=== PATIENT | female | born 2000 | race African-American/Black ===

== ENCOUNTER 2022-08-16 18:41 | Emergency (ER) | payer BC, SELFPAY ==
[2022-08-16 18:43] VITALS: BP 137/118; PULSE 115; RESP 26; TEMP 37.2; O2SAT 97; BMI 20.1
[2022-08-16 20:41] VITALS: BMI 19.8
--- NOTE | 2022-08-16 20:58 | EX.ED.DYSGE1 ---
HPI History of Present Illness Chief Complaint: Allergic Reaction Informant: patient Narrative Narrative: Patient presents with allergic reaction. Patient has had anaphylaxis before. She is allergic to fennil, and penicillin. She states today she started to get swelling around her eyes some mild heavy breathing but her throat did not close. She got hives all over. She took Benadryl that she had. She has an EpiPen with her and it is up-to-date but she did not use it. She states it is a lot better now and her symptoms are essentially gone. The hives are gone. She has a little swelling of the eyes only. The only thing new today was a multivitamin and she took the first 1 today. But she reviewed the ingredients and nothing is there that she should be allergic to. Again, she is essentially asymptomatic now. [facility] Medical History Anaphylactic reaction Allergy/AdvReac Type Severity Reaction Status Date / Time Penicillins [PCN] Allergy Hives Verified 08/16/22 18:43 Social History Smoking Status: Never smoker ROS ROS ED Constitutional Constitutional ED: Denies chills or fever(s) Eyes Eyes: Reports other Details: Swelling around eyelids but no trouble seeing ; Denies change in vision or diplopia ENT ENT ED: Reports rhinorrhea; Denies sore throat Cardiovascular Cardiovascular: Denies chest pain Respiratory/Chest Respiratory/Chest: Reports cough; Denies dyspnea Gastrointestinal Gastrointestinal: Denies nausea or vomiting Musculoskeletal Musculoskeletal: Denies myalgias Integumentary Reports rash Neurologic Neurologic: Denies headache(s) or weakness Hematologic/Lymphatic Hematologic/Lymphatic: Denies easy bleeding, easy bruising or lymphadenopathy Allergic/Immunologic Allergic/Immunologic ED: Reports urticaria EXAM Physical Exam Narrative Exam Narrative: CONSTITUTIONAL: Patient is nontoxic in appearance. The patient looks comfortable. Work of breathing looks normal. HEENT: No notable trauma. Mucous membranes moist. No sinus tenderness. No indication of pain with swallowing. EYES: No conjunctival injection. No proptosis. There is just a hint of swelling of the left upper eyelid only. NECK:No JVD. No stridor. CARDIOVASCULAR: Regular rate. Regular rhythm. No notable murmur. No JVD. Heart rate is now normal RESPIRATORY: No respiratory distress. Breathing is unlabored. No wheezes. No rhonchi. No rales. No pain with a deep breath. No chest wall tenderness. GASTROINTESTINAL: Not distended. Bowel sounds are normal. No tenderness. No guarding. No rebound. No palpable mass. No bruit is heard. GENITOURINARY: No tenderness over the bladder. No CVA tenderness. MUSCULOSKELETAL: Atraumatic. No peripheral edema. No cord. No tenderness along the deep venous system. No asymmetry. No distended veins. NEUROLOGICAL: Patient is alert and appropriate. No focal deficit noted. SKIN: No noted rashes. No diaphoresis. No hives at this time. Skin looks normal PSYCHIATRIC: Patient is calm. Mood is appropriate. Const Vital Signs: 08/16/22 18:43 Temperature 99 F Temperature Source Temporal Pulse Rate 115 H Respiratory Rate 26 H Blood Pressure 137/118 H Blood Pressure Mean 124 Pulse Ox 97 Oxygen Delivery Method Room Air MDM MDM MDM Narrative Medical decision making narrative: Patient's symptoms have resolved with oral Benadryl. I recommend she stay on this for few days. She can substitute Claritin once a day if she would like. I do not think she needs steroids as her symptoms resolved easily. She has up-to-date EpiPen. We also discussed Pepcid as ancillary treatment. We discussed reasons to return. Discharge Plan Triage Chief Complaint: Allergic Reaction Other Complaint: Shortness of Breath ED Provider: Skip Dodge Dx/Rx/DC Orders Clinical Impression: Acute allergic reaction, Urticaria Instructions: ED ADVERSE DRUG REACTION Allergic Primary Care Provider: Care Physician,No Primary Referrals: Diane Durand MD [Med Staff - Medical Science Liaison] - 1-2 Days if not improving Care Physician,No Primary [Primary Care Provider] - Activity Restrictions/Additional Instructions: Take Claritin daily for the next 3 days. Disposition Disposition: Home, Self Care
== END 2022-08-16 21:43 | disposition home or self-care (01) ==
PROVIDERS: Emergency Provider Emergency Medicine; Visit Provider Emergency Medicine
DX: T78.40XA Allergy, unspecified, initial encounter (principal); L50.9 Urticaria, unspecified; X58.XXXA Exposure to other specified factors, initial encounter
CPT/HCPCS: 99282